=== PATIENT | male | born 1955 | race African-American/Black ===

== ENCOUNTER 2017-05-31 07:13 | Inpatient (IN) ==
--- NOTE | 2017-05-30 21:51 | Discharge Summary ---
<Lin Falcon - Last Filed: 05/31/17 13:52> Date of Encounter: 05/31/17 - Discharge Diagnosis (1) Rotator cuff tear arthropathy of right shoulder Priority: Primary Status: Acute (2) Status post reverse total arthroplasty of right shoulder Priority: Primary Status: Acute (3) Chronic pain Priority: Secondary Status: Chronic Qualifiers: Chronic pain type: other chronic pain Qualified Code(s): G89.29 - Other chronic pain (4) Obesity Priority: Secondary Status: Chronic Qualifiers: Obesity type: unspecified obesity type Obesity classification: unspecified obesity classification Serious obesity comorbidity presence: unspecified whether serious comorbidity present Qualified Code(s): E66.9 - Obesity, unspecified - Hospital Course Hospital course: Mr. Segundo is a 61 year old male - Time Spent with Patient Total time spent providing and/or coordinating discharge services: - Discharge Medications Prescriptions: Celecoxib [Celebrex] 100 mg PO BID #60 capsule Cyclobenzaprine [Flexeril] 10 mg PO TID #21 tablet OxyCODONE Immed Rel [Roxicodone 5 MG] 5 mg PO BID PRN 7 Days #14 tablet PRN Reason: Breakthrough Pain Home Medications: Allopurinol [Zyloprim 100 MG] 100 mg PO DAILY 05/31/17 [History] Aspirin [Lo-Dose Aspirin EC] 81 mg PO DAILY 05/31/17 [History] Celecoxib [Celebrex] 100 mg PO BID #60 capsule 05/31/17 [Rx] Cyclobenzaprine [Flexeril] 10 mg PO TID #21 tablet 05/31/17 [Rx] Ergocalciferol (VITAMIN D2) [Vitamin D] 400 unit PO DAILY 05/31/17 [History] Gabapentin [Neurontin] 1,200 mg PO HS 05/31/17 [History] Glucosamn/[place]n/C/Mn/[place] [[facility]vs Glucosamine Chondroit Cplt] 1 tab PO DAILY 05/31/17 [History] Levothyroxine Sodium 150 mcg PO DAILY 05/31/17 [History] Lisinopril/Hydrochlorothiazide [Zestoretic 20-25 mg Tablet] 1 tab PO DAILY 05/31 [History] OxyCODONE Immed Rel [Roxicodone 5 MG] 5 mg PO BID PRN 7 Days #14 tablet [Rx] Oxycodone HCl/Acetaminophen [Percocet 5-325 mg Tablet] 1 tab PO Q6H PRN [History] Simvastatin [Zocor] 40 mg PO DAILY 05/31/17 [History] clonazePAM [Klonopin] 1 mg PO DAILY 05/31/17 [History] Allergies/Adverse Reactions: 3 Allergy/AdvReac Type Severity Reaction Status Date / Time hydrocodone [From Vicodin] AdvReac Vomiting Verified 05/31/17 07:27 Primary care physician: Palmer Fisher Jr, MD - Patient Status Disposition: Home, Self-Care Condition: Good - Discharge Instructions Follow Up With: Palmer Fisher Jr, MD [Primary Care Provider] - <Jethro Cornell - Last Filed: 06/01/17 08:00> Orders not resulted at time of discharge: Pending orders 05/31/17 00:01 XR shoulder complete RT [XR] Routine H/H [Hemoglobin and Hematocrit] [HEME] Routine Date of Encounter: 06/01/17 Time of Encounter: 08:00 - Discharge Diagnosis (1) Obesity (BMI 30.0-34.9) Status: Acute (2) Rotator cuff tear arthropathy of right shoulder Status: Acute (3) Status post reverse total arthroplasty of right shoulder Status: Acute (4) Chronic pain Status: Chronic Qualifiers: Chronic pain type: other chronic pain Qualified Code(s): G89.29 - Other chronic pain - Hospital Course Hospital course: Mr. Segundo is a 61 year old male Status post right total shoulder replacement The patient had an uneventful postoperative course. They received antibiotics and physical therapy and were discharged in stable condition. There will follow -up in the office in 2 weeks. - Time Spent with Patient Total time spent providing and/or coordinating discharge services: Primary care physician: Palmer Fisher Jr, MD - Patient Status Functional capacity at discharge: independent ambulation Overall status at discharge: patient is progressing back to baseline
--- NOTE | 2017-05-31 07:16 | Anesthesia Evaluation PreOp ---
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 (Anxiety, Chronic pain, Insomnia, Hyperuricemia) Other Medical History: Thyroid, GERD (Mild) Anesthesia History: No Prior Anesthetic Complications, Past Anesthesia (Back, katlyn feet, hydrocele, hernia repair x3) Alcohol Use: none Drug use: none Medications and Allergies 3 Allergy/AdvReac Type Severity Reaction Status Date / Time hydrocodone [From Vicodin] AdvReac Vomiting Verified 05/31/17 07:27 - Meds/Allergy Pre-op Review Medications Reviewed: Yes Allergies Reviewed: Yes Beta Blockers on Current Med List: No Anesthesia Results - Labs Laboratory Tests 05/30/17 05/30/17 05/30/17 13:33 13:33 13:33 Hgb 14.2 Hct 43.1 Plt Count 148 PT 11.6 INR 1.1 APTT 28.8 Sodium 139 Potassium 4.0 Chloride 104 Carbon Dioxide 30 H BUN 16 Creatinine 1.02 Est GFR (Non-Af Amer) > 60 Calcium 10.5 H - Imaging EKG: image reviewed (Sins bradycardia) Anesthesia Exam O2 Sat Height 1.85 m Weight 113.398 kg BMI 33 Vital Signs Temp Pulse Resp BP Pulse Ox 97.9 F 55 18 124/78 98 05/31/17 07:32 05/31/17 07:32 05/31/17 07:32 05/31/17 07:32 05/31/17 07:32 NPO (# of Hours): >8 - HEENT Mallampati: IV Teeth: Normal Oral Opening: Greater than 3 - 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 Risks, benefits, and alternatives discussed. Patient wishes to proceed.
--- NOTE | 2017-05-31 07:27 | History & Physical Report ---
Date of Encounter: 05/31/17 Time of Encounter: 07:27 24 Hour HP Update - Instructions Instructions: If the History and Physical is less than 30 days old and was completed prior to A.M. admission and or procedure and has NOT been updated on calendar day of procedure please complete this update prior to performing procedure. - Update Patient reports changes in Medical Condition: No Changes in examination, assessment, or condition: No Changes in Medication: No Preop tests/diagnostics Reviewed: Yes Surgery Remains Indicated: Yes Consent for Planned Operative Procedure(s) Verified: Yes - Pre-Operative Checklist Preoperative Checklist Indicated: No Prophylactic Antibiotic Ordered: Yes Is VTE Prophylaxis Indicated?: Yes
[2017-05-31] MEDS ORDERED: CeFAZolin Syr 2,000MG/20 ML 2,000 MG/20 ML SYRINGE IVPB ONE (07:34)
[2017-05-31] MEDS ORDERED: Lidocaine -MPF 1% 2 ML VIAL ID ONE (07:34)
[2017-05-31] MEDS ORDERED: Famotidine 20 MG/2 ML VIAL IVP ONE (07:42)
[2017-05-31] MEDS ORDERED: *HR* Methadone 10 MG TABLET PO ONE (07:42)
[2017-05-31] MEDS ORDERED: Albuterol 2.5 MG/3 ML NEBULIZER IH PRN (07:42)
[2017-05-31] MEDS: Ringers Solution, Lactated 1,000 ML IVC SCH ×2 (08:06→10:34)
[2017-05-31] MEDS ORDERED: *HR* FentaNYL (PF) 100 MCG/2 ML VIAL ONE (08:18)
[2017-05-31] MEDS ORDERED: *HR* Midazolam HCl 2 MG/2 ML VIAL ONE (08:18)
[2017-05-31] MEDS ORDERED: *HR* Propofol 200 MG/20 ML VIAL IVP ONE ×2 (08:18→08:59)
[2017-05-31] MEDS ORDERED: Lidocaine -MPF 4% 5 ML AMPUL ONE (08:23)
[2017-05-31] MEDS ORDERED: *HR* Succinylcholine 200 MG/10 ML VIAL IVP ONE (08:23)
[2017-05-31] MEDS ORDERED: *HR* Rocuronium Bromide 50 MG/5 ML VIAL ONE (08:23)
[2017-05-31] MEDS ORDERED: ROPIVACAINE HCL/PF 0.5% 30 ML VIAL ONE (08:26)
[2017-05-31] MEDS ORDERED: Bupivacaine/Clonidine Syringe 1 EACH SYRINGE ONE (08:26)
--- NOTE | 2017-05-31 08:52 | Anesthesia Procedures ---
Date of Encounter: 05/31/17 Time of Encounter: 08:50 Procedures: Anesthesia - Nerve Block Procedure Date: 05/31/17 Time: 08:50 Allergies/Adv Reactions: Hydrocone Surgical Procedure: Right Total Shoulder Arthroplasty Checklist: Correct Patient Identifier, Correct procedure, History checked Correct side: Right Blood Thinner: No Monitor Applied: EKG, BP, Pulse Oximetry Supplemental Oxygen via Nasal Cannula (L/min): 2 Sedation: Versed (mg): 2 Sedation: Fentanyl (mcg): 100 Indication: Post Op Analgesia Pre-op Neuro Deficits: No Block Type: Supraclavicular Catheter placed: No Sterile Technique: Yes Ultrasound used: Yes Anatomy identified: Yes Visual spread of Local: Yes Neuro Stimulation: No Blood on Needle Aspiration: No Smooth Injection of Local: Yes Pain with Injection of Local: No Prep: Chlorhexadine Needle: 22 x 50 mm Stimuplex Local: 0.25% Bupivicaine w/Clonidine 20 mcg/cc, Ropivacaine (d) Volume (cc): 45 Number of Attempts: 1 Complications: None/effective block Vitals: Last Vital Signs Temp 97.9 F 05/31/17 07:36 Pulse 60 05/31/17 08:48 Resp 16 05/31/17 08:48 BP 117/75 05/31/17 08:48 Pulse Ox 100 05/31/17 08:48
[2017-05-31] MEDS ORDERED: EPHEDrine 50 MG/ML VIAL ONE (09:13)
[2017-05-31] MEDS ORDERED: Dexamethasone 4 MG/ML VIAL ONE (09:25)
[2017-05-31] MEDS ORDERED: Ondansetron 4 MG/2 ML VIAL ONE (09:25)
[2017-05-31] MEDS ORDERED: Ketorolac 30 MG/ML VIAL ONE (09:26)
[2017-05-31] MEDS ORDERED: *HR* HYDROmorphone 2 MG TABLET PO PRN (09:27)
[2017-05-31] MEDS ORDERED: Ondansetron 4 MG/2 ML VIAL IVP ONE (09:27)
[2017-05-31] MEDS ORDERED: MORPHINE SUL Oral CONC 10 MG/0.5 ML ORAL.SYG SL PRN (09:27)
--- NOTE | 2017-05-31 09:49 | Orthopedic Operative Note ---
Date of procedure: 05/31/17 Pre-op diagnosis: Right shoulder cuff tear arthropathy Post-op diagnosis: same Procedure: Procedure: Total Shoulder Replacment Reverse, right Estimated blood loss: 100 cc Hardware: Metal and polyethylene replacement: Arthrex large glenoid baseplate, 2 4.5 screws. 1 6.5 screw, 42+4 glenosphere, 10 humeral stem, poly insert 3, 6 metal Exam Under anesthesia: Full motion no instability Procedural Notes: Irreparable tear supraspinatus tendon. Operative procedure: The patient was brought to the operating room and placed on the operating room table. After general anesthesia was administered the operative shoulder was examined. Findings were noted. The patient was placed in the modified beachchair position. All pressure points were padded appropriately. And the head was stabilized in the neutral position. The operative extremity was prepped and draped in the sterile surgical fashion. The patient received IV antibiotics prior to skin incision. A standard deltopectoral approach was made to the operative shoulder. Incision was made to the skin and subcutaneous tissue,hemo stasis was obtained with Bovie cautery. Using careful blunt dissection the cephalic vein was identified and mobilized medially. The deltopectoral interval was developed and the clavipectoral fascia was incised. The subscap was released off the lesser tuberosity and tagged with #2 FiberWire suture subscap was irreparable. The humerus was dislocated patient noted to have irreparable tear supraspinatus tendon, and the humeral cut was made along the anatomic neck. Anterior and posterior Bankart retractors were placed to expose the glenoid. The glenoid guide was seated and the centering hole was made. It was reamed with the appropriate reamer. The large baseplate was seated and secured with (2) 4.5 screws and one 6.5 screw. The baseplate was irrigated and dried and the 42+4 Glenosphere was seated and secured with the Masters taper. The Masters taper was tested and found to be secure the humerus was redislocated and prepared with the diaphyseal reamers, followed by a broaching process up to the appropriate size 10 in the patient's anatomic version. The metaphyseal reamer was then utilized. Trial reduction found the shoulder to be relocatable. Trial components were removed and the 10 stem was impacted in place in the patient's anatomic version. Trial reduction found the shoulder to be relocatable and stable with the appropriate 6 metal 3 Yoon Trial component was removed and the real implants were seated and secured the shoulder was reduced. The shoulder had excellent motion and excellent stability and no evidence of dislocation. The deep tissue was irrigated with pulse irrigation. The PA close the shoulder. The deltopectoral interval was closed with a running #1 PDS suture, subcutaneous tissue was irrigated and closed with 0 PDS suture, the skin was closed with Dermabond. The patient was placed in a sterile dressing, abduction brace and extubated. The patient was then transferred to the recovery room in stable condition. Anesthesia: GETA Surgeon: Jetrho Cornell Was there an museum assistant present: Yes Auto Accessories Installer: Lin Falcon Estimated blood loss (cc): 100 Condition: stable Disposition: PACU
[2017-05-31 10:38] LABS: Hemoglobin 12.4 g/dL (12.9-16.9)
--- NOTE | 2017-05-31 10:59 | Anesthesia Evaluation Post Op ---
Date of Encounter: 05/31/17 Time of Encounter: 10:59 Notes: Patient's vital signs have been reviewed. Patient is stable postoperatively and has adequately recovered from anesthesia. Patient is determined to have stable airway patency and respiratory function including respiratory rate and oxygen saturation. Patient has a stable heart rate, blood pressure and adequate hydration. Patients mental status is acceptable. Patients temperature is appropriate. Pain and nausea are adequately controlled. - Discharge PostOp Status: Transfer Patient to floor
[2017-05-31] MEDS ORDERED: Temazepam 15 MG CAPSULE PO PRN (11:13)
[2017-05-31] MEDS ORDERED: *HR* OxyCODONE/APAP 5/325 TABLET PO PRN (11:13)
[2017-05-31] MEDS ORDERED: Sennosides 8.6 MG TABLET PO PRN (11:13)
[2017-05-31] MEDS ORDERED: Ringers Solution, Lactated 1,000 ML IVC SCH (11:13)
[2017-05-31] MEDS ORDERED: Ondansetron 4 MG/2 ML VIAL IVP PRN (11:13)
[2017-05-31] MEDS ORDERED: traMADol 50 MG TABLET PO PRN (11:13)
[2017-05-31] MEDS ORDERED: MOM Conc 10 ML UD.LIQ PO PRN (11:13)
[2017-05-31] MEDS ORDERED: Naloxone 0.4 MG/ML INJ IVP PRN (11:13)
[2017-05-31] MEDS: Aspirin Enteric Coated 81 MG Tablet PO SCH (11:39)
[2017-05-31] MEDS: clonazePAM 1 MG TABLET PO SCH (11:39)
[2017-05-31] MEDS: Cholecalciferol (D-3) 1,000 UNIT TABLET PO SCH (11:40)
[2017-05-31] MEDS: ceFAZolin 2,000 MG in 0.9 % Sodium Chloride 100 ML IVPB SCH (15:30)
[2017-05-31] MEDS ORDERED: CeFAZolin Pre 2,000 MG/100 ML 2,000 MG/100 ML BAG IVPB SCH (16:00)
[2017-05-31] MEDS ORDERED: *HR* Enoxaparin 30 MG/0.3 ML SYRINGE SQ SCH (18:00)
[2017-05-31] MEDS: *HR* Enoxaparin 30 MG/0.3 ML SYRINGE SQ SCH (18:40)
[2017-05-31] MEDS ORDERED: Gabapentin 400 MG CAPSULE PO SCH (21:00)
[2017-05-31] MEDS: *HR* OxyCODONE Immed Rel 5 MG TABLET PO PRN (22:14)
[2017-06-01] MEDS: ceFAZolin 2,000 MG in 0.9 % Sodium Chloride 100 ML IVPB SCH (00:37)
[2017-06-01 02:56] LABS: Hematocrit 36.5 % (37.5-50.1); Hemoglobin 12.2 g/dL (12.9-16.9)
[2017-06-01] MEDS: *HR* Enoxaparin 30 MG/0.3 ML SYRINGE SQ SCH (06:32)
[2017-06-01 07:10] VITALS: BP 128/67
--- NOTE | 2017-06-01 08:01 | Orthopedics Progress Note ---
Date of Encounter: 06/01/17 Time of Encounter: 08:01 - Assessment and Plan (1) Obesity (BMI 30.0-34.9) Current Visit: Yes Status: Acute (2) Rotator cuff tear arthropathy of right shoulder Current Visit: No Status: Acute (3) Status post reverse total arthroplasty of right shoulder Current Visit: No Status: Acute (4) Chronic pain Current Visit: No Status: Chronic Qualifiers: Chronic pain type: other chronic pain Qualified Code(s): G89.29 - Other chronic pain Subjective Interval history: Patient was seen this morning doing well without complaints. Afebrile vital signs stable. Operative extremity: Neurovascularly intact Dressing clean dry and intact Calves nontender Assessment and plan: Continue with postoperative care Discharged today Objective Vital signs: Vital Signs Temp Pulse Resp BP Pulse Ox 06/01/17 07:10 98 F 79 16 128/67 98 06/01/17 05:04 97.6 F 73 16 126/65 97 06/01/17 00:15 98.1 F 70 16 125/69 96 05/31/17 21:55 98.8 F 70 17 138/75 96 05/31/17 14:05 97.5 F L 70 14 122/79 97 05/31/17 13:18 97.6 F 69 12 121/68 97 05/31/17 12:14 97.5 F L 59 12 126/75 97 05/31/17 11:44 97.5 F L 66 12 131/89 97 05/31/17 11:21 95 05/31/17 11:14 97.7 F 68 12 130/79 96 05/31/17 10:50 67 14 138/73 96 05/31/17 10:40 98.1 F 66 14 135/71 94 05/31/17 10:30 73 15 142/78 96 05/31/17 10:20 75 14 141/80 97 05/31/17 10:10 98.3 F 64 12 134/63 100 05/31/17 08:48 60 16 117/75 100 05/31/17 08:31 56 16 119/70 95 05/31/17 08:25 56 18 129/73 96 05/31/17 08:04 18 124/78 98 Intake and Output 05/31/17 06/01/17 06/01/17 23:59 07:59 15:59 Intake Total 100 / 100 Balance 100 / 100 Intake: IV Fluids 100 / 100 Ancef 2,000 MG In 0.9 % Sodium 100 / 100 Chloride 100 ML @ 200 mls/hr IVPB Q8HR [facility] Rx#:[id number] Other: # Voids 1 - Labs CBC & BMP: 06/01/17 01:06 Labs: Abnormal lab results Hgb 12.2 g/dL (12.9-16.9) L 06/01/17 01:06 Hct 36.5 % (37.5-50.1) L 06/01/17 01:06 - VTE Documentation of Mechanical Device: Venous foot pump, device Consult Discharge Plan - Plan Referrals: Palmer Fisher Jr, MD [Primary Care Provider] - Prescriptions: Celecoxib [Celebrex] 100 mg PO BID #60 capsule Cyclobenzaprine [Flexeril] 10 mg PO TID #21 tablet OxyCODONE Immed Rel [Roxicodone 5 MG] 5 mg PO BID PRN 7 Days #14 tablet PRN Reason: Breakthrough Pain
[2017-06-01] MEDS: clonazePAM 1 MG TABLET PO SCH (10:00)
[2017-06-01] MEDS: Aspirin Enteric Coated 81 MG Tablet PO SCH (10:00)
[2017-06-01] MEDS: Cholecalciferol (D-3) 1,000 UNIT TABLET PO SCH (10:01)
[2017-06-01] MEDS: *HR* OxyCODONE Immed Rel 5 MG TABLET PO PRN (10:01)
--- NOTE | 2017-06-01 16:35 | Physician Discharge Referral ---
Home Health/Hosp Referral Info Transfer to: Home Health Attending Provider: Provider in Charge Post Discharge: PCP - Diagnosis (1) Rotator cuff tear arthropathy of right shoulder Priority: Primary Status: Acute (2) Status post reverse total arthroplasty of right shoulder Priority: Primary Status: Acute (3) Chronic pain Status: Chronic (4) Obesity Status: Chronic - Respiratory Orders None Smoking Cessation: Smoking cessation has been advised. For more information, call the [place] Tobacco Quit Line at 0-240-PCYL-NOW. - Diet/Nutrition Diet/Nutrition Orders: Regular - Activity Activity Orders: Up ad wilber, Ambulate, Chair, Walker - Services Needed Following services are medically necessary services: Nursing, Home Health Aide, Physical Therapy, Occupational Therapy Home Care Orders: SHOULDER continuity: Opsite dressing, leave intact until first post-operative visit. If dressing becomes >50% saturated, contact office, remove dressing and place appropriate dressing in its place. Do not allow for dressing to get wet. Shoulder Precautions x 6 weeks. Apply cold therapy wrap 3-6x/day for 20 minutes at a time. Encourage ambulation throughout the day. Use Incentive spirometer 10x/hour. Elevate affected extremity above heart as tolerated. NWB to affected upper extremity x 6 weeks. Will remove brace at first post-operative appointment. OK to remove during PT/ OT and Home exercises. - Transfer Medications Prescriptions: Celecoxib [Celebrex] 100 mg PO BID #60 capsule Cyclobenzaprine [Flexeril] 10 mg PO TID #21 tablet OxyCODONE Immed Rel [Roxicodone 5 MG] 5 mg PO BID PRN 7 Days #14 tablet PRN Reason: Breakthrough Pain Home Medications: Allopurinol [Zyloprim 100 MG] 100 mg PO DAILY 05/31/17 [History] Aspirin [Lo-Dose Aspirin EC] 81 mg PO DAILY 05/31/17 [History] Celecoxib [Celebrex] 100 mg PO BID #60 capsule 05/31/17 [Rx] Cyclobenzaprine [Flexeril] 10 mg PO TID #21 tablet 05/31/17 [Rx] Ergocalciferol (VITAMIN D2) [Vitamin D] 400 unit PO DAILY 05/31/17 [History] Gabapentin [Neurontin] 1,200 mg PO HS 05/31/17 [History] Glucosamn/Condroitn/C/Mn/[place] [[facility]vs Glucosamine Chondroit Cplt] 1 tab PO DAILY 05/31/17 [History] Levothyroxine Sodium 150 mcg PO DAILY 05/31/17 [History] Lisinopril/Hydrochlorothiazide [Zestoretic 20-25 mg Tablet] 1 tab PO DAILY 05/31 [History] OxyCODONE Immed Rel [Roxicodone 5 MG] 5 mg PO BID PRN 7 Days #14 tablet [Rx] Oxycodone HCl/Acetaminophen [Percocet 5-325 mg Tablet] 1 tab PO Q6H PRN [History] Simvastatin [Zocor] 40 mg PO DAILY 05/31/17 [History] clonazePAM [Klonopin] 1 mg PO DAILY 05/31/17 [History] Allergies/Adverse Reactions: 3 Allergy/AdvReac Type Severity Reaction Status Date / Time hydrocodone [From Vicodin] AdvReac Vomiting Verified 05/31/17 07:27 Certification: Further, I certify that my clinical findings support that this patient is homebound (i.e. absences from home require considerable and taxing effort and are for medical reasons or congregation services or infrequently or short duration when for other reasons) because: Homebound Reason: Post-surgery restriction and or conditions limit ability to leave home Attestation: My signature below is to certify that this patient is under my care and that I, or nurse practitioner, or a physician's gift shop assistant working with me, has a face-to -face encounter with this patient.
== END 2017-06-01 11:02 | disposition home or self-care (01) | DRG 483 ==
LOC: SAMDAY 07:13 → 3NENU 11:13
PROVIDERS: ADMIT Orthopaedic Surgery; ATTEND Orthopaedic Surgery